=== PATIENT | male | born 1975 | race Caucasian/White ===

== ENCOUNTER 2017-03-29 15:47 | Emergency (ER) | payer OTHER ==
[~2017-03-29] VITALS: Ht 177.8 cm; Wt 123.6 kg
[~2017-03-29 15:47] MED LIST: ATOR10TA PO; BUPR-42 PO; CEFD300C9 PO; CRUT1EAC7 MC; HYDR-3702 PO; INDM25C; INDO50CA PO; LSNP20T PO; METO50TA7 PO; OXYC1TAB87 PO; PIRO10CA2 PO
--- OUTSIDE RECORDS SUMMARY | 2017-03-29 15:52 | XMS REPORT | Continuity of Care Document ---
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 Phone [employer] Unavailable Unavailable Problems Problem Status Onset Date Classification Date Reported Comments Source HTN Active Medical 01/01/2011 [facility] Anxiety Active Medical 01/01/2011 [facility] LBP Radiating to Right Leg Active Medical 01/13/2011 [facility] Medications Allergies, Adverse Reactions, Alerts Substance Category Reaction Severity Reaction type Status Date Reported Comments Source NKA Datatype(AL1.2)-Drug Allergy ACTIVE 04/10/2011 [facility] Immunizations Immunization Date Given Site Status Last Updated Comments Source no immunization 01/01/2011 Immunization, History completed FELIBERTO [facility] Results Order Name Results Value Reference Range Date Interpretation Comments Source Office/Clinic Notes Office/Clinic Notes [facility] [address] [place] [id number] PATIENT: RADHA GROVES MR #: [id number] : 1975 DATE SEEN: 04/10/2011 Chief Complaint Patient in today for follow-up after series of epidurals due to low back pain on right side. Patient rates pain 2/10, uncomfortable. History of Present Illness Radha returns to the clinic today for reevaluation. Radha has a chief complaint of low back and extremity pain. He is doing well at this point. He has had 2 selective nerve root blocks. His VAS today is 2/10. He denies any new numbness of weakness. Pain Assessment Cognitive Status: Independent, decisions consistent/reasonable Intensity: 2 Location: Lower back Acceptable Intensity: 2 Scale Type: Floyd-Alberts Faces Pain Scale Onset: Gradual Quality: Other: Uncomfortable Radiating: Right Associated Symptoms: None Aggravating Factors: Other: bending, physical activity Alleviating Factors: None Pain Effects on Appetite: None Pain Effects on Concentration: None Pain Effects on Daily Life: Mild Pain Effects on Emotions: None Pain Effects on Relationships: None Pain Effects on Sleep: None Pain Effects on Work/School: None Pain Best: 2 Pain Worst: 6 Allergies NKA Current Medications metoprolol 50 mg oral tablet (metoprolol), 50 mg 1 Tab, Every 24 hours Paxil 10 mg oral tablet (paroxetine), 1 Tab, Daily Social History Smoking Status: Smokes daily Current Tobacco Usage: Current Recreational Drug Use: Denies Alcohol Use: Current Alcohol Type: Beer Alcohol Frequency: Other: OCCASIONALLY Physical Examination TEMP BP Pulse RR MAP O2 Sat 36.5149/013817170.33 Blood Pressure Location: Right arm Weight Height BMI BSA 177.0 cm General: Finds patient alert and oriented, well developed, well nourished and in no acute distress. Skin: Intact. Shows no clubbing or cyanosis. Cardiovascular: Regular rate and rhythm without murmur. Lungs: Clear to auscultation. Abdomen: Soft with positive bowel sounds. Eyes: Show no conjunctival hemorrhages. Neck: Examination finds no signs of infection or sepsis. Lower Extremities: Motor strength is +5/5. There is no sensory loss from L3- S1. Deep tendon reflexes are +1 to +2 at L4 and S1 bilaterally. There is no cyanosis or clubbing. Straight leg raising has improved. Back: The exam of the back finds no signs of infection or sepsis. Impression 1. Radiculopathy, Lumbar (724.4) Plan At this time he has done well with his right S1 selective nerve root blocks. We will see him back on an as needed basis. CC: Clyde Blanco M.D. TR:FORREST RAFAEL#:[id number] [Electronically Signed on 04.10.2011 01:25 pm] Tarik Rodriguez, DO </br> 04/10/2011 [Electronically Signed on 04.10.2011 01:25 pm] Tarik Rodriguez, DO [facility] Amb Nurs Intake Event Amb Nurs Intake Event 2010 [facility] Procedure Reports Procedure Reports [address] [address] PATIENT: RADHA GROVES MR #: [id number] : 1975 DATE SEEN: 02/03/2011 TITLE OF PROCEDURE: Right S1 selective nerve root block. PREPROCEDURE DIAGNOSIS: Lumbar radiculopathy. POSTPROCEDURE DIAGNOSIS: Lumbar radiculopathy. ESTIMATED BLOOD LOSS: None. COMPLICATIONS: None. DESCRIPTION OF PROCEDURE: The risks and benefits were explained including bleeding, infection, nerve damage, drug reaction and spinal headache. The patient was placed in the prone position. The skin was then prepped and draped in the usual manner. Under fluoroscopy the S1 neural foramen was identified at approximately the 6 o'clock position and 1% Xylocaine anesthesia was placed in the skin. Following this, a 22-gauge spinal needle was advanced in the AP and lateral dimensions under fluoroscopy. After the needle was in the caudal canal, 0.2 mL of Omnipaque-M 300 was injected. This was followed with 0.5 mL of 1% Xylocaine preservative free and 40 mg of Depo-Medrol. There were no complications. The patient was returned to the room in stable condition. TR:JOHN RAFAEL#:[id number] [Electronically Signed on 02.06.2011 01:05 pm] Tarik Rodriguez, DO </br> 02/03/2011 [Electronically Signed on 02.06.2011 01:05 pm] Tarik Rodriguez, DO [facility] Office/Clinic Notes Office/Clinic Notes [facility] [address] [place] [address] PATIENT: RADHA GROVES MR #: [id number] : 1975 DATE SEEN: 02/03/2011 Chief Complaint Pain is located in right low back, radiates into butt and states has tingling in foot at times. VAS 4/10 continuous sharp pain. 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 History of Present Illness He returns to the clinic today with a chief complaint of low back pain. He has a VAS today of 4/10. He is here for a second selective nerve root block. Pain Assessment Cognitive Status: Independent, decisions consistent/reasonable Intensity: 4 Location: Other: see chief complaint Aggravating Factors: Other: bending over, long walks Pain Effects on Appetite: None Pain Effects on Concentration: Mild Pain Effects on Daily Life: Moderate Pain Effects on Emotions: None Pain Effects on Relationships: None Pain Effects on Sleep: None Pain Effects on Work/School: Moderate Pain Best: 2 Pain Worst: 8 Allergies NKA Current Medications metoprolol 50 mg oral tablet (metoprolol), 50 mg 1 Tab, Every 24 hours Paxil 10 mg oral tablet (paroxetine), 1 Tab, Daily Social History Smoking Status: Smokes daily Current Tobacco Usage: Current Recreational Drug Use: Denies Alcohol Use: Current Alcohol Type: Beer Alcohol Frequency: Other: OCCASIONALLY Physical Examination TEMP BP Pulse RR MAP O2 Sat 36.8140/[id number] Blood Pressure Location: Right arm Vital Signs Monitoring: Oxygen Therapy: Room air Weight Height BMI BSA 177.0 cm General: Finds patient alert and oriented, well developed, well nourished and in no acute distress. Skin: Intact. Shows no clubbing or cyanosis. Cardiovascular: Regular rate and rhythm without murmur. Lungs: Clear to auscultation. Abdomen: Soft with positive bowel sounds. Eyes: Show no conjunctival hemorrhages. Neck: Examination finds no signs of infection or sepsis. Lower Extremities: Motor strength is +5/5. There is no sensory loss from L3- S1. Deep tendon reflexes are +1 to +2 at L4 and S1 bilaterally. There is no cyanosis or clubbing. Straight leg raising is positive on the right. Back: The exam of the back finds no signs of infection or sepsis. Impression 1. Radiculopathy, Lumbar (724.4) Plan 1. Will proceed with a right S1 selective nerve root block. Site was marked and risks were identified. Orders this visit: Selective Nerve Root Injection Lumbar Unilat Incl Fluoro -CFPM methylprednisolone, 40 mg, X 1 DOSE TR:JONH RAFAEL#:[id number] [Electronically Signed on 02.04.2011 10:44 am] Tarik Rodriguez, DO </br> 02/03/2011 [Electronically Signed on 02.04.2011 10:44 am] Tarik Rodriguez, DO [facility] Amb Nurs Intake Event Amb Nurs Intake Event 2010 [facility] Procedure Reports Procedure Reports [facility] [address] [place] [address] PATIENT: RADHA GROVES MR #: [id number] : 1975 DATE SEEN: 01/13/2011 TITLE OF PROCEDURE: Right S1 selective nerve root block. PREPROCEDURE DIAGNOSIS: Lumbar radiculopathy. POSTPROCEDURE DIAGNOSIS: Lumbar radiculopathy. ESTIMATED BLOOD LOSS: None. COMPLICATIONS: None. DESCRIPTION OF PROCEDURE: The risks and benefits were explained including bleeding, infection, nerve damage, drug reaction and spinal headache. The patient was placed in the prone position. The skin was then prepped and draped in the usual manner. Under fluoroscopy the S1 neural foramen was identified at approximately the 6 o'clock position and 1% Xylocaine anesthesia was placed in the skin. Following this, a 22-gauge spinal needle was advanced in the AP and lateral dimensions under fluoroscopy. After the needle was in the caudal canal, 0.2 mL of Omnipaque-M 300 was injected. This was followed with 5 mL of 1% Xylocaine preservative free and 40 mg of Depo-Medrol. There were no complications. The patient was returned to the room in stable condition. TR:JOHN RAFAEL#:[id number] [Electronically Signed on 01.16.2011 09:22 am] Tarik Rodriguez, DO </br> 01/13/2011 [Electronically Signed on 01.16.2011 09:22 am] Tarik Rodriguez, DO [facility] Office/Clinic Notes Office/Clinic Notes [facility] [address] [place] [address] PATIENT: RADHA GROVES MR #: [id number] : 1975 DATE SEEN: 01/13/2011 Chief Complaint Patient is here today for a selective nerve root injection. VAS 4/10. History of Present Illness He returns to the clinic today with chief complaint of right leg pain. VAS today is 4/10. Denies any new numbness or weakness. Pain Assessment Cognitive Status: Independent, decisions consistent/reasonable Intensity: 4 Location: Lower back Acceptable Intensity: 2 Quality: Burning Aggravating Factors: Sitting Alleviating Factors: Immobilization Pain Effects on Appetite: None Pain Effects on Concentration: Mild Pain Effects on Daily Life: Mild Pain Effects on Emotions: Mild Pain Effects on Relationships: Mild Pain Effects on Sleep: Mild Pain Effects on Work/School: Mild Pain Best: 1 Pain Worst: 8 Pain After Treatment: 1 Allergies NKA Current Medications metoprolol 50 mg oral tablet (metoprolol), 50 mg 1 Tab, Every 24 hours Paxil 10 mg oral tablet (paroxetine), 1 Tab, Daily Social History Recreational Drug Use: Denies Alcohol Use: Current Alcohol Type: Beer Alcohol Frequency: Other: OCCASIONALLY Physical Examination TEMP BP Pulse RR MAP O2 Sat 36.8111/96010982.67 Vital Signs Monitoring: Weight Height BMI BSA 177.0 cm General: Finds patient alert and oriented, well developed, well nourished and in no acute distress. Skin: Intact. Shows no clubbing or cyanosis. Cardiovascular: Regular rate and rhythm without murmur. Lungs: Clear to auscultation. Abdomen: Soft with positive bowel sounds. Eyes: Show no conjunctival hemorrhages. Neck: Examination finds no signs of infection or sepsis. Lower Extremities: Motor strength is +5/5. There is no sensory loss from L3- S1. Deep tendon reflexes are +1 to +2 at L4 and S1 bilaterally. There is no cyanosis or clubbing. Straight leg raising is slightly positive on the right. Back: The exam of the back finds no signs of infection or sepsis. Impression 1. Lumbar radiculopathy (729.2) Plan 1. Will proceed with an S1 selective nerve root block. Orders this visit: Selective Nerve Root Injection Lumbar Unilat Incl Fluoro -CFPM methylprednisolone, 40 mg, X 1 DOSE See him back for further evaluation and care. TR:JOHN RAFAEL#:[id number] [Electronically Signed on 01.14.2011 02:48 pm] Tarik Rodriguez, DO </br> 01/13/2011 [Electronically Signed on 01.14.2011 02:48 pm] Tarik Rodriguez, DO [facility] Amb Nurs Intake Event Amb Nurs Intake Event 2010 [facility] Prescription Pickup Prescription Pickup 01/10/2011 [facility] Amb Nurs Intake Event Amb Nurs Intake Event 2010 [facility] Office/Clinic Notes Office/Clinic Notes [facility] [address] [place] [address] PATIENT: RADHA GROVES MR #: [id number] : 1975 DATE SEEN: 01/10/2011 Chief Complaint New patient here today to discuss his low back pain. His pain started 15 years ago just with getting out of bed, two years ago pain again after kicking, and then in 06/2010 after working out (kicking). Pain scale 2/10 sharp and burning radiating right foot. Additional Information: Ref Dr Valerio. History of Present Illness Radha, who works with the [employer], is seen for evaluation at the request of Dr. Valerio. He has a chief complaint of low back and right leg pain. This pain actually started 15 years ago but got worse 2 years ago. After a work out in June 2010, it became severe. Current VAS today is 2/10. He had an MRI that shows a disc protrusion at L5-S1, which is contacting the S1 nerve root. He states he has no left sided pain. He tracks the pain down through his buttock into his upper thigh and down the lateral aspect of his foot in the S1 dermatome. He denies any new bladder or bowel dysfunction. Lying down relieves his pain; activity makes it worse. He complains of irritability and has been to physical therapy. Pain Assessment Cognitive Status: Independent, decisions consistent/reasonable Intensity: 2 Location: Lower back Acceptable Intensity: 1 Scale Type: 0-10 Pain scale Time Pattern: Constant Quality: Burning, Sharp Radiating: Right Radiation Location: Foot Associated Symptoms: Unable to participate in physical activity Aggravating Factors: Movement Alleviating Factors: Repositioning Interventions: None Pain Effects on Appetite: None Pain Effects on Concentration: None Pain Effects on Daily Life: None Pain Effects on Emotions: Moderate Pain Effects on Relationships: None Pain Effects on Sleep: None Pain Effects on Work/School: None Pain Best: 2 Pain Worst: 8 Review of Systems Pertinent negative for the following system(s): GI/ Allergies NKA Current Medications metoprolol 50 mg oral tablet (metoprolol), 50 mg 1 Tab, Every 24 hours Paxil 10 mg oral tablet (paroxetine), 1 Tab, Daily Social History Recreational Drug Use: Denies Alcohol Use: Current Alcohol Type: Beer Alcohol Frequency: Other: OCCASIONALLY Physical Examination TEMP BP Pulse RR MAP O2 Sat 36.7131/89695172.33 Blood Pressure Location: Left arm Weight Height BMI BSA 111.300 kg (245.37 lbs)177.0 cm35.52.3393 m2 General: Finds patient alert and oriented, well developed, well nourished and in no acute distress. Skin: Intact. Shows no clubbing or cyanosis. Cardiovascular: Regular rate and rhythm without murmur. Lungs: Clear to auscultation. Abdomen: Soft with positive bowel sounds. Eyes: Show no conjunctival hemorrhages. Neck: Examination finds no signs of infection or sepsis. Lower Extremities: Motor strength is +5/5. There is no sensory loss from L3- S1. Deep tendon reflexes are +1 to +2 at L4 and S1 bilaterally. There is no cyanosis or clubbing. Straight leg raising is slightly positive on the right. Back: The exam of the back finds no signs of infection or sepsis. Impression 1. Radiculopathy, Lumbar/Thoracic (724.4) 2. Low back pain radiating to Right Leg (729.2) Plan 1. In view of the fact that he does not have any left sided pain and he had previous epidurals in [place] with mixed results last fall, I would proceed with an S1 selective nerve root block. Risks/benefits were explained. No guarantee was given. Future Orders: DX Fluoro 1 Hour or Less [id number] - 02/03/11 08:50 DX Fluoro 1 Hour or Less [id number] 02/24/11 12:30 We will see him back on a procedure day for further evaluation and care. CC:Sohan Valerio M.D. TR:JOHN RAFAEL#:[id number] [Electronically Signed on 01.14.2011 10:29 am] Tarik Rodriguez, DO </br> 01/10/2011 [Electronically Signed on 01.14.2011 10:29 am] Tarik Rodriguez DO [facility] Office/Clinic Notes Office/Clinic Notes Sent authorization to [place] for pt to be seen by Dr Rodriguez in the Pain Clinic. Called [place] today, and obtained verbal authorization for pt to be seen x's 4 at that office. Spoke with Alia, and authorization # [id number]. 01/02/2011 [facility] Office/Clinic Notes Office/Clinic Notes [facility] / [facility] [address] [place] [address] [phone] Fax: [phone] PATIENT: RADHA GROVES MR #: [id number] : 1975 DATE SEEN: 01/01/2011 Referral Source: Clyde Blanco M.D. Chief Complaint Low back and right lower limb pain. 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 He has played football in the past and has had some difficulty with back pain thereto related off and on over the years. As of about 8 months ago, he was doing some activities in the field requiring him to rapidly lift his right leg and he had the sudden onset of pain felt in the right low back. It is felt mostly in the right hip but can go so far as to involve the right dorsolateral foot. He has not noticed weakness per se but the afore noted pain. He does not notice bowel or bladder control problems. He is noting difficulty with long distance ambulation and difficulty with grocery shopping such as going across large parking lots and large interior box store shopping. Pain Assessment Cognitive Status: Independent, decisions consistent/reasonable Intensity: 3 Location: Lower back Laterality: Right Time Pattern: Constant Quality: Aching, Burning, Dull, Sharp, Other: right foot numbness Radiating: Right, Lateral Radiation Location: Upper leg, Lower leg, Foot, Other: right buttocks Aggravating Factors: Other: Putting head on chest, and setting to standing, sneezing.Doing anything active. Alleviating Factors: Other: Laying on floor. Interventions: Other: Physical Therapy, and 2 LESI's Pain Effects on Sleep: Moderate Pain Best: 2 Pain Worst: 8 Review of Systems Musculoskeletal: Back Pain, Stiffness Neurological: Numbness, Tingling Psychiatric: Depression Pertinent negative for the following system(s): Constitutional, HEENT, Respiratory, Cardiovascular, GI/, Integumentary, Hematologic, Endocrine Allergies NKA Current Medications Paxil 10 mg oral tablet (paroxetine), 1 Tab, Daily Problems and Past Medical History Active HTN LBP Radiating to Right Leg Anxiety Family History Respiratory Past Medical History Sleep Apnea Medical History: Mother Cardiovascular Past Medical History High Blood Pressure Medical History: Mother Ocular Past Medical History Cataract Medical History: Grandparents Family Status Father: Living Mother: Living Paternal Grandfather: Paternal Grandmother: Living Maternal Grandfather: Maternal Grandmother: Brother 2: Living Spouse: Engaged Procedure History undecending testicle at 11[birth year]1977. 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 His transitional movement from sit to stand is somewhat painful. Forward flexion is performed well as is extension. Sensation is bilaterally symmetrical in both lower limbs except for the dorsum and dorsolateral right foot - which is decreased compared to the opposite side. I do not notice muscular atrophy or weakness in manual muscle testing proximally or distally in the lower limbs. The Achilles reflex is absent on the right compared to the opposite side. Discussion He has had in his history epidural steroid injections which were upon further evaluation noted to be of the blind type. He stated that the first one was marginally helpful but the second one was not. His only medication is Paxil. He had been taking narcotic medications in the past to help with pain but notes that he was able to stop this after his epidural steroid injection. The MRI scan shows disk protrusion at L5-S1 off to the right with affectation of the S1 nerve root. Impression Lumbar radiculopathy involving the S1 nerve root. LBP Radiating to Right Leg (729.2) Plan Orders this visit: Pain Management Consult -Request Follow Up 3 Weeks -Request Repeat epidural steroid injections - but with fluoroscopic guidance. He notes that he had restrictions on his functional activity including the avoidance of running and heavy lifting. He is to follow up with me after his first epidural steroid injection by about 2 weeks in order to gauge its efficacy and also engage in further treatment planning. Thank you, Dr. Blanco, for the opportunity to be of assistance for you and your patient. Sincerely, Sohan Valerio M.D. TR:CLINEC RAFAEL#:[id number] [Electronically Signed on 01.01.2011 02:35 pm] Sohan Valerio MD </br> 01/01/2011 [Electronically Signed on 01.01.2011 02:35 pm] Sohan Valerio MD [facility] Amb Nurs Intake w Hx Event Amb Nurs Intake w Hx Event 01/01/2011 [facility] Vital Signs Encounters Location Location Details Encounter Type Encounter Number Reason For Visit Attending Provider ADM Date DC Date Status Source SPNE SPNE [facility] [id number] LUMBAR - HIAWATHA SOHAN VALERIO 2010 [facility] [address] [facility] [id number] low back pain/possible ERIK/MOE Tarik Rodriguez 01/10/2011 01/10/2011 [facility] ( Outpatient[facility] [id number] LOW BACK PAIN/POSSIBLE ERIK/MOE TARIK RODRIGUEZ 01/10/2011 01/10/2011 [facility] [id number] Right S1 SNRB TARIK RODRIGUEZ 01/13/2011 [facility] ( Out[facility] [id number] RIGHT S1 SNRB TARIK RODRIGUEZ 201001/13/2011 [facility] [id number] right S1 SARAH RODRIGUEZ 02/03/2011 [facility] [id number] RIGHT S1 SARAH RODRIGUEZ 201002/03/2011 Active [facility] [address] [facility] [id number] Right S1 SARAH Rodriguez 02/24/2011 Active [facility] [id number] F/UP OF SERIES/JLS TARIK RODRIGUEZ 04/10/2011 Active [facility] ( Out[facility] [id number] F/UP OF SERIES/JLS TARIK RODRIGUEZ 04/1004/10/2011 Active [facility] [address] [facility] [id number] Right S1 SARAH Rodriguez Active [facility] Procedures Plan of Care Social History Assessment and Plan Family History Value Date Source Advance Directives Order Name Results Value Date Source
--- OUTSIDE RECORDS SUMMARY | 2017-03-29 15:55 | XMS REPORT | Continuity of Care Document ---
Author Author Sasha Baez Address Unknown Phone Unavailable Care Team Providers Care Manager Chemistry Name Role Phone [employer] Unavailable Unavailable Problems [...] Interpretation Comments Source Office/Clinic Notes Office/Clinic Notes [facility] [address] [place] [address] PATIENT: RADHA GROVES MR #: [id number] : 1975 DATE SEEN: 04/10/2011 Chief Complaint [...] TEMP BP Pulse RR MAP O2 Sat 36.5149/274968094.33 Blood Pressure Location: Right arm Weight Height [...] needed basis. CC: Clyde Blanco M.D. TR:FORREST RAFAEL#:[id number] [Electronically Signed on 04.10.2011 01:25 pm] Tarik Rodriguez, DO </br> 04/10/2011 [Electronically Signed on 04.10.2011 01:25 pm] Tarik Rodriguez, DO [facility] Amb Nurs Intake Event Amb Nurs Intake Event 2010 [facility] Procedure Reports Procedure Reports [address] [address] PATIENT: RADHA GROVES MR #: [id number] : 1975 DATE SEEN: 02/03/2011 TITLE OF [...] to the room in stable condition. TR:JOHN RAFAEL#:[id number] [Electronically Signed on 02.06.2011 01:05 pm] Tarik Rodriguez, DO </br> 02/03/2011 [Electronically Signed on 02.06.2011 01:05 pm] Tarik Rodriguez, DO [facility] Office/Clinic Notes Office/Clinic Notes [facility] [address] [place] [address] PATIENT: RADHA GROVES MR #: [id number] : 1975 DATE SEEN: 02/03/2011 Chief Complaint Pain is located in right low back, radiates into butt and states has tingling in foot at times. VAS 4/10 continuous sharp pain. 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 History of Present Illness He returns [...] TEMP BP Pulse RR MAP O2 Sat 36.8140/246035345.00 Blood Pressure Location: Right arm Vital Signs [...] -CFPM methylprednisolone, 40 mg, X 1 DOSE TR:JOHN RAFAEL#:[id number] [Electronically Signed on 02.04.2011 10:44 am] Tarik Rodriguez, DO </br> 02/03/2011 [Electronically Signed on 02.04.2011 10:44 am] Tarik Rodriguez, DO [facility] Amb Nurs Intake Event Amb Nurs Intake Event 2010 [facility] Procedure Reports Procedure Reports [facility] [address] [place] [address] PATIENT: RADHA GROVES MR #: [id number] : 1975 DATE SEEN: 01/13/2011 TITLE OF [...] to the room in stable condition. TR:JOHN RAFAEL#:[id number] [Electronically Signed on 01.16.2011 09:22 am] Tarik Rodriguez, DO </br> 01/13/2011 [Electronically Signed on 01.16.2011 09:22 am] Tarik Rodriguez, DO [facility] Office/Clinic Notes Office/Clinic Notes [facility] [address] [place] [address] PATIENT: RADHA GROVES MR #: [id number] : 1975 DATE SEEN: 01/13/2011 Chief Complaint [...] TEMP BP Pulse RR MAP O2 Sat 36.8111/18078336.67 Vital Signs Monitoring: Weight Height BMI BSA [...] back for further evaluation and care. TR:JOHN RAFAEL#:[id number] [Electronically Signed on 01.14.2011 02:48 pm] Tarik Rodriguez, DO </br> 01/13/2011 [Electronically Signed on 01.14.2011 02:48 pm] Tarik Rodriguez, DO [facility] Amb Nurs Intake Event Amb Nurs Intake Event 2010 [facility] Prescription Pickup Prescription Pickup 01/10/2011 [facility] Amb Nurs Intake Event Amb Nurs Intake Event 2010 [facility] Office/Clinic Notes Office/Clinic Notes [facility] [address] [place] [address] PATIENT: RADHA GROVES MR #: [id number] : 1975 DATE SEEN: 01/10/2011 Chief Complaint [...] Present Illness Radha, who works with the [employer], is seen for evaluation at the request [...] TEMP BP Pulse RR MAP O2 Sat 36.7131/90719853.33 Blood Pressure Location: Left arm Weight Height [...] pain and he had previous epidurals in [place] with mixed results last fall, I would proceed with an S1 selective nerve root block. Risks/benefits were explained. No guarantee was given. Future Orders: DX Fluoro 1 Hour or Less [id number] - 02/03/11 08:50 DX Fluoro 1 Hour or Less [id number] 02/24/11 12:30 We will see him back on a procedure day for further evaluation and care. CC:Sohan Valerio M.D. TR:JOHN RAFAEL#:[id number] [Electronically Signed on 01.14.2011 10:29 am] Tarik Rodriguez, DO </br> 01/10/2011 [Electronically Signed on 01.14.2011 10:29 am] Tarik Rodriguez DO [facility] Office/Clinic Notes Office/Clinic Notes Sent authorization to [place] for pt to be seen by Dr Rodriguez in the Pain Clinic. Called [place] today, and obtained verbal authorization for pt to be seen x's 4 at that office. Spoke with Alia, and authorization # [id number]. 01/02/2011 [facility] Office/Clinic Notes Office/Clinic Notes [facility] / [facility] [address] [place] [address] [phone] Fax: [phone] PATIENT: RADHA GROVES MR #: [id number] : 1975 DATE SEEN: 01/01/2011 Referral Source: Clyde Blanco M.D. Chief Complaint Low back and right lower limb pain. 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 He has played football in the [...] undecending testicle at 11/1975. Social History Occupation: [employer] Living Situation: Home independently Physical Examination TEMP BP Pulse RR MAP O2 Sat 36.7149/3024629406.33 Blood Pressure Location: Right arm Weight Height [...] your patient. Sincerely, Sohan Valerio M.D. TR:CLINEC RAFAEL#:[id number] [Electronically Signed on 01.01.2011 02:35 pm] Sohan Valerio MD </br> 01/01/2011 [Electronically Signed on 01.01.2011 02:35 pm] Sohan Valerio MD [facility] Amb Nurs Intake w Hx Event Amb Nurs Intake w Hx Event 01/01/2011 [facility] Care Vital Signs Encounters Location Location Details Encounter Type Encounter Number Reason For Visit Attending Provider ADM Date DC Date Status Source SPNE SPNE [facility] [id number] LUMBAR - HIAWATHA SOHAN VALERIO 2010 [facility] [address] [facility] [id number] low back pain/possible ERIK/MOE Tarik Rodriguez 01/10/2011 01/10/2011 [facility] ( Outpatient[facility] [id number] LOW BACK PAIN/POSSIBLE ERIK/MOE TARIK RODRIGUEZ 01/10/2011 01/10/2011 [facility] [id number] Right S1 SNRB TARIK RODRIGUEZ 01/13/2011 [facility] ( Outpatient) [id number] RIGHT S1 SNRB TARIK RODRIGUEZ 201001/13/2011 [facility] [id number] right S1 SARAH RODRIGUEZ 02/03/2011 Active [facility] ( Outpatient) [id number] RIGHT S1 SARAH RODRIGUEZ 201002/03/2011 Active [facility] [address] [facility] [id number] Right S1 SARAH Rodriguez 02/24/2011 Active [facility] [id number] F/UP OF SERIES/JLS TARIK RODRIGUEZ 04/10/2011 Active [facility] ( Outpatient[facility] [id number] F/UP OF SERIES/JLS TARIK RODRIGUEZ 04/1004/10/2011 Active [facility] [address] [facility] [id number] Right S1 SARAH Rodriguez Active [facility] Procedures Plan of Care Social History Assessment and Plan Family History Value Date Source Advance Directives Order Name Results Value Date Source
[2017-03-29] MEDS ORDERED: DESV50TA18 PO (16:06)
[2017-03-29] MEDS ORDERED: COLC0.6T7 PO (16:06)
[2017-03-29] MEDS ORDERED: BACITRACIN OINTMENT 0.9 GM PACKET TOP ONE (16:20)
[2017-03-29] MEDS ORDERED: LIDOCAINE 1% (XYLOCAINE) 20 ML VIAL INJ ONE (16:20)
[2017-03-29 16:49] VITALS: BP 150/95
== END 2017-03-29 16:49 | disposition home or self-care (01) ==
LOC: ED 15:50
DX: S61.217A Laceration without foreign body of left little finger without damage to nail, initial encounter (principal); W26.0XXA Contact with knife, initial encounter; Y93.G1 Activity, food preparation and clean up; Y92.000 Kitchen of unspecified non-institutional (private) residence as the place of occurrence of the external cause
CPT/HCPCS: 12001; 99282; 99283